=== PATIENT | male | born 1990 | race Two or more races ===

== ENCOUNTER 2024-08-16 22:36 | Emergency (ER) | payer SELFPAY ==
[~2024-08-16] VITALS: Ht 170.2 cm; Wt 63.6 kg
[2024-08-16 22:36] VITALS: BP 147/104; PULSE 92; RESP 18; TEMP 98.1; O2SAT 99
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
== END 2024-08-16 23:59 | disposition home or self-care (01) ==
LOC: ER 22:36 → EDBD 22:36 → ER 23:59
DX: S00.81XA Abrasion of other part of head, initial encounter (principal); H57.9 Unspecified disorder of eye and adnexa; X58.XXXA Exposure to other specified factors, initial encounter; Y93.89 Activity, other specified; Y92.89 Other specified places as the place of occurrence of the external cause; Y99.8 Other external cause status
CPT/HCPCS: 99283